=== PATIENT | female | born 1955 | race Caucasian/White ===

== ENCOUNTER 2017-06-28 06:59 | Outpatient (CLI) | payer BC | END 2017-06-28 07:00 | disposition home or self-care (01) | LOC: BICMRI 06:59 | PROVIDERS: ATTEND Neurological Surgery | DX: M54.2 Cervicalgia (principal); M50.30 Other cervical disc degeneration, unspecified cervical region; M99.51 Intervertebral disc stenosis of neural canal of cervical region | CPT/HCPCS: 72141 ==

== ENCOUNTER 2017-07-03 02:52 | Outpatient (CLI) | payer BC | END 2017-07-03 02:53 | disposition home or self-care (01) | LOC: BICRAD 02:52 | PROVIDERS: ATTEND Neurological Surgery | DX: M54.2 Cervicalgia (principal); M47.892 Other spondylosis, cervical region; S13.140A Subluxation of C3/C4 cervical vertebrae, initial encounter | CPT/HCPCS: 72040 ==

== ENCOUNTER 2018-01-18 16:01 | Outpatient (CLI) | payer BC | END 2018-01-18 16:02 | disposition home or self-care (01) | LOC: BICRAD 16:01 | PROVIDERS: ATTEND Chiropractor | DX: M47.27 Other spondylosis with radiculopathy, lumbosacral region (principal) | CPT/HCPCS: 72100 ==